=== PATIENT | male | born 1935 | race Caucasian/White ===

== ENCOUNTER 2018-01-28 07:45 | Emergency (ER) | payer MEDICARE ==
--- NOTE | 2018-01-28 08:53 | RAD ---
RIGHT HIP 2 VIEWS: Date: 01/28/18 HISTORY: Fall. Right hip injury. FINDINGS: Right hip prosthesis is in place. No perihardware lucency. No acute fracture or dislocation. Osseous structures are demineralized. IMPRESSION: 1. Right hip prosthesis. 2. Osteoporosis. POS: [facility]
--- NOTE | 2018-01-28 08:54 | RAD ---
AP PELVIS 1 VIEW: Date: 01/28/18 HISTORY: Fall. Pelvic injury. FINDINGS: Right hip prosthesis is in place. Osseous structures are demineralized. Sacral ala and pelvic rings a re intact. IMPRESSION: 1. Osteoporosis. Right hip prosthesis. 2. No acute osseous abnormalities are demonstrated. POS: [facility]
[2018-01-28 09:14] LABS: #Eosinphils 0.2 thou/uL (0.0-0.7); #Lymphocytes 0.8 thou/uL (1.20-3.40); #Monocytes 0.6 thou/uL (0.11-0.59); #Neutrophils 6.7 thou/uL (1.40-6.50); %Basophils 0.1 % (0.0-1.0); %Eosinophils 2.7 % (0.0-10.0); %Lymphocytes 10.1 % (21.0-51.0); %Monocytes 6.6 % (0.0-10.0); %Neutrophils 80.5 % (42.0-75.0); Hemoglobin 12.2 g/dL (14.0-18.0); Mean Corpuscular HGB CONC 32.1 g/dL (32.0-36.0); Mean Corpuscular Hemoglobin 25.5 pg (27.0-31.0); Mean Corpuscular Volume 79.2 fl (80.0-94.0); Mean Platelet Volume 5.5 fL (7.4-10.4); Platelet Count 242 thou/uL (130-400); RBC Distribution Width 15.1 % (11.5-14.5); Red Blood Cell (RBC) Count 4.79 mill/uL (4.70-6.10); White Blood Cell (WBC) Count 8.3 thou/uL (4.8-10.8)
[2018-01-28 09:36] LABS: ALT (SGPT) 13 U/L (8-55); AST (SGOT) 15 U/L (5-34); Albumin 3.9 g/dL (3.4-4.8); Alkaline Phosphatase 87 U/L (40-150); Anion Gap 12 mmol/L (10-20); BUN (Urea Nitrogen) 10 mg/dL (8.4-25.7); Bilirubin, Total 0.4 mg/dL (0.2-1.2); Calc. Creatinine Clearance 0 mL/min (70-130); Calcium 8.9 mg/dL (7.8-10.44); Carbon Dioxide 28 mmol/L (23-31); Chloride 102 mmol/L (98-107); Estimated GFR-MDRD Greater than 90; Globulin 2.5 g/dL (2.4-3.5); Glucose 83 mg/dL (83-110); Potassium 4.5 mmol/L (3.5-5.1); Protein, Total 6.4 g/dL (5.8-8.1); Sodium 137 mmol/L (136-145)
[2018-01-28 09:40] LABS: Bilirubin Negative (Negative); Blood, Urine Negative (Negative); Clarity CLEAR (Clear); Glucose, Urine (Dipstick) Negative (Negative); Leukocyte Negative (Negative); Nitrite Negative (Negative); Protein, Urine (Dipstick) Negative (Neg-Trace); Specific Gravity, Urine 1.006 (1.002-1.036); Urobilinogen 0.2 mg/dL (0.2-1.0)
[2018-01-28 09:40] LABS: CKMB 2.3 ng/mL (0-6.6); Troponin I Less than 0.010 ng/mL (< 0.028)
== END 2018-01-28 11:15 | disposition home or self-care (01) ==
LOC: ERS 07:45
DX: Y93.01 Activity, walking, marching and hiking; R53.81 Other malaise; M25.551 Pain in right hip; W19.XXXA Unspecified fall, initial encounter
CPT/HCPCS: 36415; 72170; 80053; 81003; 82553; 84484; 85025; 93005

== ENCOUNTER 2019-02-20 18:33 | Observation (INO) | payer MEDICARE, OTHER ==
--- NOTE | 2019-02-20 19:28 | RAD ---
Radiograph right hip 2 views: HISTORY: 83-year-old male status post traumatic injury due to fall FINDINGS: Femoral head and neck have been replaced with metallic prosthesis with stem that reaches the junction between the proximal and middle thirds of the femoral diaphysis. No signs of hardware loosening. No dislocation. Diffuse osteopenia decreases the sensitivity for the detection of adjacent pelvic fra cture. No grossly displaced pelvic fracture identified. No dislocation. IMPRESSION: 1. Status post right hip replacement arthroplasty. 2. No evidence of complications.
[2019-02-20] MEDS ORDERED: Acetaminophen 500 MG TAB ONE (20:02)
[2019-02-20] MEDS ORDERED: Morphine 4 MG/ML VIAL ONE (20:33)
[2019-02-21] MEDS ORDERED: Senokot S 8.6-50 MG TAB PO PRN (00:32)
[2019-02-21] MEDS ORDERED: Acetaminophen 650 MG Suppository PR PRN (00:32)
[2019-02-21] MEDS ORDERED: Ondansetron ODT 4 MG TAB PO PRN (00:32)
[2019-02-21] MEDS ORDERED: Acetaminophen 325 MG TAB PO PRN (00:32)
[2019-02-21 00:51] LABS: #Lymphocytes 1.2 thou/uL (1.20-3.40); #Monocytes 0.9 thou/uL (0.11-0.59); #Neutrophils 7.8 thou/uL (1.40-6.50); %Basophils 0.2 % (0.0-1.0); %Eosinophils 0.3 % (0.0-10.0); %Lymphocytes 11.7 % (21.0-51.0); %Monocytes 8.9 % (0.0-10.0); %Neutrophils 78.8 % (42.0-75.0); Hemoglobin 12.8 g/dL (14.0-18.0); Mean Corpuscular HGB CONC 31.8 g/dL (32.0-36.0); Mean Corpuscular Hemoglobin 26.4 pg (27.0-31.0); Mean Platelet Volume 6.2 fL (7.4-10.4); Platelet Count 167 thou/uL (130-400); RBC Distribution Width 15.1 % (11.5-14.5); Red Blood Cell (RBC) Count 4.85 mill/uL (4.70-6.10)
[2019-02-21 01:08] VITALS: BMI 23.3
[2019-02-21 01:16] LABS: ALT (SGPT) 11 U/L (8-55); AST (SGOT) 12 U/L (5-34); Albumin 3.8 g/dL (3.4-4.8); Alkaline Phosphatase 62 U/L (40-150); Anion Gap 10 mmol/L (10-20); BUN (Urea Nitrogen) 13 mg/dL (8.4-25.7); Bilirubin, Total 0.9 mg/dL (0.2-1.2); Calc. Creatinine Clearance 73 mL/min (70-130); Carbon Dioxide 26 mmol/L (23-31); Chloride 106 mmol/L (98-107); Estimated GFR-MDRD 83; Globulin 2.6 g/dL (2.4-3.5); Glucose 131 mg/dL (83-110); Potassium 4.1 mmol/L (3.5-5.1); Protein, Total 6.4 g/dL (5.8-8.1); Sodium 138 mmol/L (136-145)
--- NOTE | 2019-02-21 01:39 | HP ---
This is WES Cortes dictating a report for Tomas Levin MD. CHIEF COMPLAINT: Right hip pain. HISTORY OF PRESENT ILLNESS: Mr. Nathan is a pleasant 83-year-old man who presents to the ER after a mechanical fall with subsequent injury to the right hip. The patient states he was in the kitchen reaching for his coffee while attempting to walk with his walker when he lost his footing and fell onto his right hip. He has a history of a right hip replacement. Reports having difficulty with weightbearing since then. He underwent an x-ray which showed previously placed metallic prosthesis with no signs of hardware loosening. No dislocation. Due to diffuse osteopenia, there was decreased sensitivity for detection of adjacent pelvic fracture. No grossly displaced pelvic fracture identified. The patient was given analgesia, but still unable to weight bear, therefore admitted for pain control. He states he has been in his usual state of health in recent days, however, has noted lower leg swelling approximately 3 to 4 days ago. States he does not have a history of congestive heart failure and does not usually experience edema in the lower legs. The patient reports having decreased fluid intake in recent days, but denies experiencing any lightheadedness or dizziness. Denies any chest pain or shortness of breath prior to the fall or in recent days. He states he has been in his usual state of health. REVIEW OF SYSTEMS: The patient denies having any recent fevers, chills, or sweats. No headaches or dizziness. No chest pain, palpitations, or shortness of breath. No abdominal pain or cramping. He does report straining with bowel movements, but denies any hard stools. No bright red blood per rectum or melena. Denies having any urinary symptoms, but has noted darkening of his urine. No hematuria. All other review of systems are negative. PAST MEDICAL HISTORY: 1. Previous hip fracture in November of 2017. 2. Hypertension. 3. History of DVT. PAST SURGICAL HISTORY: Right hip replacement. SOCIAL HISTORY: The patient denies any tobacco use or heavy alcohol use. Denies any illicit drug use. ALLERGIES: NO KNOWN DRUG ALLERGIES. CURRENT MEDICATIONS: PHYSICAL EXAMINATION: GENERAL: The patient appears well developed, well nourished, is in no acute distress. VITAL SIGNS: Temperature 98.7, pulse 75, respirations 12, blood pressure 138/97, O2 saturation 94% on room air. HEENT: Normocephalic and atraumatic. Pupils are equal, round, and reactive to light. Sclerae are without icterus. Oropharynx is notable for dry mucous membranes. NECK: Supple. LUNGS: Clear to auscultation. CARDIAC: Regular rate and rhythm. ABDOMEN: Soft, nontender, nondistended. No guarding or rigidity. No renal angle tenderness. EXTREMITIES: Notable for +3 pitting edema in the bilateral feet extending just above the ankles. No cellulitic appearance or weeping. Pedal pulses equal bilaterally. The patient with right hip tenderness. No external rotation or shortening. Limited range of motion due to pain in the right hip. Unable to weightbear. NEUROLOGIC: Alert and oriented x3. SKIN: Dry. No rash or jaundice. Scaly appearance to the lower legs. LABORATORY DATA: None obtained in the ED. IMAGING DATA: As mentioned above in HPI. IMPRESSION AND PLAN: Mr. Nathan is a very pleasant 83-year-old man who presents following a mechanical fall with subsequent injury to the right hip causing difficulty with weightbearing. He is being admitted for management of the following. 1. Right hip pain, unable to weightbear. The patient had an x-ray done with diffuse osteopenia, therefore, decreased sensitivity to detect adjacent pelvic fracture. However, no grossly displaced pelvic fracture identified or dislocation. We will obtain CT pelvis given the amount of pain and limited range of motion with difficulty weightbearing. 2. Pedal edema. The patient states this is new and he does not suffer from congestive heart failure. We will obtain laboratory studies including BNP. 3. Hypertension. We will resume home medications and monitor blood pressure. 4. Gastrointestinal prophylaxis. 5. Deep venous thrombosis prophylaxis. 6. Full code status. The patient's case was discussed with Dr. Levin, who agrees upon care as described above. Job ID: [id number]
[2019-02-21] MEDS: Sodium Chloride 0.9% 1,000 ML IV SCH ×3 (02:00→20:50)
[2019-02-21 05:45] LABS: #Lymphocytes 1.2 thou/uL (1.20-3.40); #Monocytes 0.7 thou/uL (0.11-0.59); #Neutrophils 6.1 thou/uL (1.40-6.50); %Basophils 0.2 % (0.0-1.0); %Eosinophils 0.6 % (0.0-10.0); %Lymphocytes 15.1 % (21.0-51.0); %Monocytes 8.2 % (0.0-10.0); Hemoglobin 12.5 g/dL (14.0-18.0); Mean Corpuscular HGB CONC 32.7 g/dL (32.0-36.0); Mean Corpuscular Hemoglobin 26.5 pg (27.0-31.0); Mean Corpuscular Volume 80.9 fL (78.0-98.0); Mean Platelet Volume 6.4 fL (7.4-10.4); Platelet Count 164 thou/uL (130-400); Red Blood Cell (RBC) Count 4.74 mill/uL (4.70-6.10)
[2019-02-21 06:12] LABS: Anion Gap 11 mmol/L (10-20); BUN (Urea Nitrogen) 11 mg/dL (8.4-25.7); Calc. Creatinine Clearance 75 mL/min (70-130); Calcium 8.7 mg/dL (7.8-10.44); Carbon Dioxide 26 mmol/L (23-31); Chloride 105 mmol/L (98-107); Estimated GFR-MDRD 87; Glucose 123 mg/dL (83-110); Potassium 3.8 mmol/L (3.5-5.1); Sodium 138 mmol/L (136-145)
--- NOTE | 2019-02-21 07:50 | CT ---
PRELIMINARY REPORT/[facility]/EMERGENCY AFTER HOURS PROCEDURE: EXAM: CT Pelvis Without Contrast, Skeletal EXAM DATE/TIME: 02/21/2019 12:51 AM CLINICAL HISTORY: 83 years old, male; Hip pain; Right hip; Prior surgery; Surgery date: 6+ months; Surgery type: Hip replacement TECHNIQUE: Imaging protocol: Axial computed tomography images of the pelvis without intravenous contrast. Exam focused on the skeletal structures. COMPARISON: No relevant prior studies available. FINDINGS: Bones/joints: Acute nondisplaced fracture of the right anterior acetabular roof. Possible hairline fractures through the left inferior and superior pubic rami near the pubic symphysis. The bones are demineralized. Cortical irregularity at the anterior left femoral neck (series 2, image 45), is likel y a vascular channel. Surgical changes of right hip arthroplasty. No malalignment. Soft tissues: There is hemorrhage in the soft tissues around the right acetabular fracture and extending intra-pelvic along the right psoas muscle and around the bladder. IMPRESSION: 1. Acute nondisplaced fracture through the right anterior acetabular roof. 2. Hemorrhage from fracture site extends into the pelvis around the bladder and along the right psoas muscle. 3. Suspected nondisplaced fractures of the left inferior and superior pubic rami near the pubic symphysis. 4. Right hip arthroplasty without malalignment. Thank you for allowing us to participate in the care of your patient. Dictated and Authenticated by: Rahda Duong MD 02/21/2019 1:59 AM Central Time ([place] & [place]) FINAL REPORT EMERGENCY AFTER HOURS CT PELVIS WITHOUT CONTRAST: FINDINGS/IMPRESSION: I agree with the preliminary report given by Dr. Duong of [facility]. Transcribed Date/Time: 02/21/2019 8:04 AM
--- NOTE | 2019-02-21 10:11 | CON ---
DATE OF CONSULTATION: 02/21/2019 This is Do Granados PA-C dictating a report for Darryl Shoemaker MD. [facility] CONSULTING PHYSICIAN: Darryl Shoemaker MD HISTORY OF PRESENT ILLNESS: This is an 83-year-old male who is an independent ambulator, who presented to the ER after a mechanical fall with injury to the right hip. The patient stated that he was in his kitchen reaching for his coffee whenever he lost his footing and fell onto his right hip. He does have a history of a right hemiarthroplasty from previous femoral neck fracture. This was fixed in [place]. He reports generalized weakness overall since that surgery. He states much of his time he just sits at home and watches TV. Currently at bedside, the patient denies any numbness or tingling. He reports pain to the right hip, which is worse with movement and relieved with rest. Denies any pain to any other joints or extremities at this time. We have been consulted for this right hip pain. PAST MEDICAL HISTORY: Significant for: 1. Previous hip fracture in November of 2017 for which he underwent a right hip hemiarthroplasty. 2. Hypertension. 3. History of DVT. PAST SURGICAL HISTORY: Significant for right hip hemiarthroplasty. SOCIAL HISTORY: The patient denies any tobacco or alcohol use. He denies any illicit drug use. He is an independent ambulator. States he lives in an apartment here in [facility]. ALLERGIES: NO KNOWN DRUG ALLERGIES. FAMILY HISTORY: Reviewed and noncontributory. REVIEW OF SYSTEMS: A 10-point review of systems conducted and otherwise negative except what is stated above. PHYSICAL EXAMINATION: VITAL SIGNS: Temperature of 98.1 Fahrenheit, pulse 87, respiratory rate 20, O2 saturation 93% on room air, and blood pressure of 170/89. GENERAL: The patient is awake and alert. He is slightly hard of hearing. He is pleasant and cooperative with exam findings today. No family present in the exam room at this time. HEENT: Head is normocephalic, atraumatic. NECK: Supple. Trachea midline. Breathing is nonlabored. EXTREMITIES: The right lower extremity was evaluated. There is no evidence of ecchymosis. No traumatic wounds to the right lower extremity. Of note, there is evidence of dusky changes to the medial ankle, which appear to be consistent with cardiac disease. The patient is able to move all toes. Distal neurovascular status intact. The patient does have pain with log roll. He is more comfortable in a position of slight flexion at the hip with slight flexion at the knee. He was propped up in this position for comfort. Positive tenderness to palpation along the trochanteric region of the right hip. Remainder of the extremities were evaluated and no other obvious injuries are noted. DIAGNOSTIC STUDIES: Radiographic findings were reviewed by myself as well as Dr. Shoemaker today including a CT of the right hip demonstrates a nondisplaced roof of the acetabulum fracture. There is a right hip hemiarthroplasty in place. IMPRESSION: Nondisplaced right acetabulum fracture. PLAN: At this point, the patient's fracture is nonoperative. We will limit his weightbearing. He will be toe-touch on the right side. He will work with physical therapy. Given his history of DVT and his new immobilization, it would be smart for the patient to be on some sort of anticoagulant, even though he is not undergoing surgery with us. He will be screened for rehab facility. We would like to see him in our office in approximately 3-4 weeks for followup evaluation and new x-rays. Plan of care was discussed with the patient today at bedside. He verbalizes understanding and is amenable to it. Please re-consult the Orthopedic service for any further questions. Job ID: [id number]
[2019-02-21] MEDS ORDERED: Metoprolol Tartrate 25 MG TAB PO SCH (10:15)
[2019-02-21] MEDS: traMADol HCl 50 MG TAB PO PRN ×2 (10:24→20:50)
--- NOTE | 2019-02-21 12:11 | PDOC.EVN ---
Event Note - Event Note Event Note: Patient admitted over night, he was seen by myself. He was lying comfortably in bed. He reports pain controlled at the moment, ortho determined nonsurgical need at this time. He denies chest pain, palpitations, shortness of breath or abdominal pain. On exam: A&Ox3 no acute distress noted. RRR +S1/S2 with clear lung sounds bilaterally. Abdomen soft and nontender. He did not express any complaints of pain on exam with palpation of right or left hip, but did report pain directed to right hip with movement of right leg. Plan to continue PT/OT, rehab screen placed. Patient will continue current pain regimen and toe touch weight bearing status as tolerated. He will likely benefit from short stay in an inpatient rehabilitation facility.
[2019-02-22 08:06] VITALS: BP 150/83; TEMP 98.4
[2019-02-22] MEDS: traMADol HCl 50 MG TAB PO PRN (08:40)
[2019-02-22] MEDS ORDERED: Metoprolol Tartrate 25 MG TAB PO SCH (09:00)
== END 2019-02-22 10:37 ==
LOC: ERS 18:33 → T4-B 23:07
PROVIDERS: ADMIT Internal Medicine; ATTEND Internal Medicine
DX: M25.551 Pain in right hip (principal); M85.869 Other specified disorders of bone density and structure, unspecified lower leg; W01.0XXA Fall on same level from slipping, tripping and stumbling without subsequent striking against object, initial encounter; Z96.641 Presence of right artificial hip joint
CPT/HCPCS: 72192; 73502; 80048; 80053; 83880; 85025 ×2; 96372; 97139 ×2; 97530; 99285; G0378; 36415; J2270

== ENCOUNTER 2022-05-06 15:33 | Inpatient (IN) | payer MEDICARE, OTHER ==
[2022-05-06] MEDS ORDERED: Ondansetron ODT 4 MG TAB ONE (16:54)
[2022-05-06 17:01] LABS: #Eosinphils 0.1 thou/uL (0.0-0.7); #Lymphocytes 0.5 thou/uL (1.20-3.40); #Monocytes 0.6 thou/uL (0.11-0.59); #Neutrophils 5.8 thou/uL (1.40-6.50); %Lymphocytes 6.5 % (21.0-51.0); %Neutrophils 84.5 % (42.0-75.0); Hemoglobin 14.7 g/dL (14.0-18.0); Mean Corpuscular HGB CONC 33.2 g/dL (32.0-36.0); Mean Corpuscular Volume 93.4 fL (78.0-98.0); Mean Platelet Volume 6.3 fL (7.4-10.4); Platelet Count 153 thou/uL (130-400); RBC Distribution Width 13.5 % (11.5-14.5); Red Blood Cell (RBC) Count 4.75 mill/uL (4.70-6.10); White Blood Cell (WBC) Count 6.8 thou/uL (4.8-10.8)
[2022-05-06 17:19] LABS: ALT (SGPT) 27 U/L (8-55); AST (SGOT) 20 U/L (5-34); Alkaline Phosphatase 60 U/L (40-110); Anion Gap 14 mmol/L (10-20); BUN (Urea Nitrogen) 23 mg/dL (8.4-25.7); Bilirubin, Total 1.3 mg/dL (0.2-1.2); Calc. Creatinine Clearance 0 mL/min (70-130); Calcium 8.7 mg/dL (7.8-10.44); Carbon Dioxide 26 mmol/L (23-31); Chloride 104 mmol/L (98-107); Estimated GFR 86; Globulin 2.8 g/dL (2.4-3.5); Glucose 129 mg/dL (83-110); Potassium 3.9 mmol/L (3.5-5.1); Protein, Total 6.8 g/dL (5.8-8.1); Sodium 140 mmol/L (136-145)
[2022-05-06] MEDS ORDERED: ceFAZolin 2 GM/Dextrose 50 ML 2 GM in Premix Bag 1 BAG IVPB SCH (17:30)
[2022-05-06] MEDS ORDERED: Promethazine HCl 25 MG/ML VIAL IM PRN (18:32)
[2022-05-06] MEDS ORDERED: hydrALAZINE 20 MG/ML VIAL SLOW IVP PRN (18:32)
[2022-05-06] MEDS ORDERED: Morphine 2 MG/ML VIAL SLOW IVP PRN ×2 (18:32→22:39)
[2022-05-06] MEDS ORDERED: Morphine 4 MG/ML VIAL SLOW IVP PRN (18:32)
[2022-05-06] MEDS ORDERED: Dextrose 5% in Water 1,000 ML IV PRN (18:32)
[2022-05-06] MEDS ORDERED: Dextrose 50% Abboject 50 ML SYRINGE SLOW IVP PRN (18:32)
[2022-05-06] MEDS ORDERED: Ondansetron PF 4 MG/2 ML Vial IVP PRN (18:32)
[2022-05-06] MEDS ORDERED: Ondansetron ODT 4 MG TAB PO PRN (18:32)
[2022-05-06] MEDS ORDERED: Ibuprofen 800 MG TAB PO PRN (18:34)
[2022-05-06] MEDS ORDERED: Cyclobenzaprine 10 MG TAB PO PRN (18:34)
[2022-05-06] MEDS ORDERED: traMADol HCl 50 MG TAB PO PRN (18:34)
[2022-05-06] MEDS ORDERED: Acetaminophen 500 MG TAB PO SCH (19:15)
[2022-05-06 22:46] VITALS: BMI 19.9
[2022-05-06] MEDS: Acetaminophen 500 MG TAB PO SCH (22:58)
[2022-05-06] MEDS: Famotidine 20 MG TAB PO SCH (22:58)
[2022-05-06] MEDS: Senokot S 8.6-50 MG TAB PO SCH (22:59)
[2022-05-06] MEDS ORDERED: Sodium Chloride 0.9% 1,000 ML IV SCH (23:00)
[2022-05-07 02:45] LABS: SARS-CoV-2 NAA Rapid Test DETECTED (NotDetected)
[2022-05-07] MEDS: Acetaminophen 500 MG TAB PO SCH ×3 (05:08→17:22)
[2022-05-07 05:48] LABS: #Eosinphils 0.2 thou/uL (0.0-0.7); #Lymphocytes 1.2 thou/uL (1.20-3.40); #Monocytes 0.5 thou/uL (0.11-0.59); #Neutrophils 4.5 thou/uL (1.40-6.50); %Basophils 0.3 % (0.0-1.0); %Eosinophils 3.7 % (0.0-10.0); %Lymphocytes 18.6 % (21.0-51.0); %Monocytes 8.4 % (0.0-10.0); %Neutrophils 69.1 % (42.0-75.0); Hemoglobin 15.3 g/dL (14.0-18.0); Mean Corpuscular HGB CONC 31.7 g/dL (32.0-36.0); Mean Corpuscular Hemoglobin 30.4 pg (27.0-31.0); Mean Corpuscular Volume 95.8 fL (78.0-98.0); Mean Platelet Volume 7.2 fL (7.4-10.4); Platelet Count 139 thou/uL (130-400); RBC Distribution Width 13.8 % (11.5-14.5); Red Blood Cell (RBC) Count 5.03 mill/uL (4.70-6.10); White Blood Cell (WBC) Count 6.5 thou/uL (4.8-10.8)
[2022-05-07 06:07] LABS: Anion Gap 19 mmol/L (10-20); BUN (Urea Nitrogen) 18 mg/dL (8.4-25.7); Calc. Creatinine Clearance 71 mL/min (70-130); Calcium 8.9 mg/dL (7.8-10.44); Carbon Dioxide 20 mmol/L (23-31); Chloride 105 mmol/L (98-107); Estimated GFR 90; Glucose 95 mg/dL (83-110); Phosphorus 2.6 mg/dL (2.3-4.7); Potassium 3.7 mmol/L (3.5-5.1); Sodium 140 mmol/L (136-145)
[2022-05-07] MEDS: Polyethylene Glycol 3350 17 GM Packet PO SCH (08:22)
[2022-05-07] MEDS: Famotidine 20 MG TAB PO SCH ×2 (08:22→20:38)
[2022-05-07] MEDS: Senokot S 8.6-50 MG TAB PO SCH ×2 (08:22→20:38)
[2022-05-07] MEDS ORDERED: Sodium Chloride 0.9% 1,000 ML IV SCH (11:15)
[2022-05-07] MEDS ORDERED: Tranexamic Acid 1,000 MG in Sodium Chloride 0.9% 250 ML 250 ML IVPB SCH (11:30)
[2022-05-07] MEDS ORDERED: fentaNYL Citrate/PF 100 MCG/2 ML SYRINGE ONE (11:32)
[2022-05-07] MEDS ORDERED: Phenylephrine 10 MG/ML VIAL ONE ×2 (11:33→12:18)
[2022-05-07] MEDS ORDERED: Rocuronium Bromide 10 MG/ML (10ML VIAL) ONE (12:18)
[2022-05-07] MEDS ORDERED: Lidocaine 1% PF 5 ML VIAL ONE (12:18)
[2022-05-07] MEDS ORDERED: PROPOFOL 200 MG/20 ML VIAL ONE (12:18)
[2022-05-07] MEDS ORDERED: Esmolol 100 MG/10 ML VIAL ONE (12:18)
[2022-05-07] MEDS ORDERED: SUGAMMADEX SODIUM 200 MG/2 ML VIAL ONE (14:13)
[2022-05-07] MEDS ORDERED: Fentanyl 100 MCG/2 ML VIAL ONE (14:23)
[2022-05-07] MEDS ORDERED: Ondansetron HCl/PF 4 MG/2 ML Vial IVP PRN (14:50)
[2022-05-07] MEDS ORDERED: Promethazine HCl 25 MG/ML VIAL IVPB PRN (14:50)
[2022-05-07] MEDS ORDERED: Promethazine HCl 25 MG/ML VIAL IM PRN (14:50)
[2022-05-07] MEDS: CEFAZOLIN 2 GM in Sodium Chloride 0.9% 100 ML IVPB SCH (22:48)
[2022-05-08] MEDS: Acetaminophen 500 MG TAB PO SCH ×4 (01:11→17:48)
[2022-05-08 06:03] LABS: #Eosinphils 0.1 thou/uL (0.0-0.7); #Monocytes 0.5 thou/uL (0.11-0.59); #Neutrophils 4.9 thou/uL (1.40-6.50); %Basophils 0.2 % (0.0-1.0); %Eosinophils 1.3 % (0.0-10.0); %Lymphocytes 15.6 % (21.0-51.0); %Monocytes 7.3 % (0.0-10.0); %Neutrophils 75.6 % (42.0-75.0); Hemoglobin 13.1 g/dL (14.0-18.0); Mean Corpuscular Hemoglobin 30.4 pg (27.0-31.0); Mean Corpuscular Volume 94.9 fL (78.0-98.0); Mean Platelet Volume 6.3 fL (7.4-10.4); Platelet Count 129 thou/uL (130-400); RBC Distribution Width 13.7 % (11.5-14.5); Red Blood Cell (RBC) Count 4.32 mill/uL (4.70-6.10); White Blood Cell (WBC) Count 6.5 thou/uL (4.8-10.8)
[2022-05-08] MEDS: CEFAZOLIN 2 GM in Sodium Chloride 0.9% 100 ML IVPB SCH (06:12)
[2022-05-08 06:15] LABS: INR-International Normal Ratio 1.2; Prothrombin Time 14.9 sec (12.0-14.7)
[2022-05-08 06:16] LABS: PTT 51.3 sec (22.9-36.1)
[2022-05-08 06:25] LABS: Anion Gap 15 mmol/L (10-20); BUN (Urea Nitrogen) 20 mg/dL (8.4-25.7); Calc. Creatinine Clearance 64 mL/min (70-130); Calcium 8.3 mg/dL (7.8-10.44); Carbon Dioxide 24 mmol/L (23-31); Chloride 105 mmol/L (98-107); Estimated GFR 87; Glucose 102 mg/dL (83-110); Magnesium 1.8 mg/dL (1.6-2.6); Phosphorus 2.9 mg/dL (2.3-4.7); Potassium 4.2 mmol/L (3.5-5.1); Sodium 140 mmol/L (136-145)
[2022-05-08] MEDS: Senokot S 8.6-50 MG TAB PO SCH ×2 (08:50→20:39)
[2022-05-08] MEDS: Polyethylene Glycol 3350 17 GM Packet PO SCH (08:50)
[2022-05-08] MEDS: Famotidine 20 MG TAB PO SCH ×2 (08:50→20:39)
[2022-05-08] MEDS ORDERED: Magnesium 2 GM/50 ML(in water) 2 GM in Premix Bag 1 BAG IVPB SCH (09:00)
[2022-05-09] MEDS: Acetaminophen 500 MG TAB PO SCH ×4 (00:17→17:56)
[2022-05-09 05:57] LABS: Hemoglobin 12.6 g/dL (14.0-18.0); Mean Corpuscular HGB CONC 32.2 g/dL (32.0-36.0); Mean Corpuscular Hemoglobin 30.4 pg (27.0-31.0); Mean Corpuscular Volume 94.2 fL (78.0-98.0); Mean Platelet Volume 6.7 fL (7.4-10.4); Platelet Count 139 thou/uL (130-400); RBC Distribution Width 13.5 % (11.5-14.5); Red Blood Cell (RBC) Count 4.15 mill/uL (4.70-6.10); White Blood Cell (WBC) Count 6.7 thou/uL (4.8-10.8)
[2022-05-09] MEDS: Polyethylene Glycol 3350 17 GM Packet PO SCH (07:55)
[2022-05-09] MEDS: Famotidine 20 MG TAB PO SCH ×2 (07:55→21:43)
[2022-05-09] MEDS: Aspirin 81 mg Enteric Coated Tablet PO SCH ×2 (07:55→21:43)
[2022-05-09] MEDS: Senokot S 8.6-50 MG TAB PO SCH ×2 (07:55→21:46)
[2022-05-09] MEDS ORDERED: Polyvinyl Alcohol 1.4%/Povidone 0.6% Opth Drops EA EYE PRN (12:36)
[2022-05-10] MEDS: Acetaminophen 500 MG TAB PO SCH ×4 (00:29→17:17)
[2022-05-10] MEDS: Aspirin 81 mg Enteric Coated Tablet PO SCH ×2 (08:32→21:34)
[2022-05-10] MEDS: Famotidine 20 MG TAB PO SCH ×2 (08:32→21:34)
[2022-05-10] MEDS: Senokot S 8.6-50 MG TAB PO SCH ×2 (08:33→21:35)
[2022-05-10] MEDS: Polyethylene Glycol 3350 17 GM Packet PO SCH (08:33)
[2022-05-11] MEDS: Acetaminophen 500 MG TAB PO SCH ×4 (05:33→18:35)
[2022-05-11] MEDS: Aspirin 81 mg Enteric Coated Tablet PO SCH ×2 (09:47→22:35)
[2022-05-11] MEDS: Famotidine 20 MG TAB PO SCH ×2 (09:47→22:35)
[2022-05-11] MEDS: Senokot S 8.6-50 MG TAB PO SCH ×2 (09:47→22:36)
[2022-05-11] MEDS: Polyethylene Glycol 3350 17 GM Packet PO SCH (09:47)
[2022-05-11] MEDS: Ibuprofen 200 MG TAB PO SCH ×2 (13:49→22:35)
[2022-05-11] MEDS: traMADol HCl 50 MG TAB PO SCH ×2 (13:49→18:35)
[2022-05-11] MEDS ORDERED: Sodium Chloride 0.9% 500 ML IV SCH (21:45)
[2022-05-12] MEDS: traMADol HCl 50 MG TAB PO SCH ×4 (00:09→18:22)
[2022-05-12] MEDS: Acetaminophen 500 MG TAB PO SCH ×4 (00:10→18:22)
[2022-05-12] MEDS: Ibuprofen 200 MG TAB PO SCH ×3 (04:16→22:19)
[2022-05-12] MEDS: Senokot S 8.6-50 MG TAB PO SCH ×2 (08:26→22:19)
[2022-05-12] MEDS: Aspirin 81 mg Enteric Coated Tablet PO SCH ×2 (08:26→22:20)
[2022-05-12] MEDS: Polyethylene Glycol 3350 17 GM Packet PO SCH (08:26)
[2022-05-12] MEDS: Famotidine 20 MG TAB PO SCH ×2 (08:26→22:20)
[2022-05-12] MEDS ORDERED: Sodium Chloride 0.9% 1,000 ML IV SCH (13:45)
[2022-05-13] MEDS: traMADol HCl 50 MG TAB PO SCH ×4 (00:41→23:55)
[2022-05-13] MEDS: Acetaminophen 500 MG TAB PO SCH ×4 (00:41→23:53)
[2022-05-13] MEDS: Ibuprofen 200 MG TAB PO SCH ×3 (05:06→22:38)
[2022-05-13] MEDS: Famotidine 20 MG TAB PO SCH ×2 (09:48→21:53)
[2022-05-13] MEDS: Polyethylene Glycol 3350 17 GM Packet PO SCH ×2 (09:48→10:49)
[2022-05-13] MEDS: Aspirin 81 mg Enteric Coated Tablet PO SCH ×2 (09:48→21:53)
[2022-05-13] MEDS: Senokot S 8.6-50 MG TAB PO SCH ×2 (09:49→22:06)
[2022-05-14] MEDS: Acetaminophen 500 MG TAB PO SCH ×4 (02:17→18:09)
[2022-05-14] MEDS: traMADol HCl 50 MG TAB PO SCH ×4 (02:18→18:10)
[2022-05-14] MEDS: Ibuprofen 200 MG TAB PO SCH ×3 (05:55→18:08)
[2022-05-14 06:32] LABS: Anion Gap 13 mmol/L (10-20); BUN (Urea Nitrogen) 10 mg/dL (8.4-25.7); Calc. Creatinine Clearance 77 mL/min (70-130); Calcium 8.7 mg/dL (7.8-10.44); Carbon Dioxide 28 mmol/L (23-31); Chloride 102 mmol/L (98-107); Estimated GFR 92; Glucose 94 mg/dL (83-110); Potassium 4.3 mmol/L (3.5-5.1); Sodium 139 mmol/L (136-145)
[2022-05-14] MEDS: Enoxaparin Sodium 40 MG/0.4 ML SYRINGE SC SCH (09:22)
[2022-05-14] MEDS: Polyethylene Glycol 3350 17 GM Packet PO SCH ×2 (09:22→09:25)
[2022-05-14] MEDS: Aspirin 81 mg Enteric Coated Tablet PO SCH ×2 (09:22→20:58)
[2022-05-14] MEDS: Famotidine 20 MG TAB PO SCH ×2 (09:22→20:57)
[2022-05-14] MEDS: Senokot S 8.6-50 MG TAB PO SCH ×2 (09:22→20:58)
[2022-05-15] MEDS: Acetaminophen 500 MG TAB PO SCH ×5 (00:08→23:43)
[2022-05-15] MEDS: traMADol HCl 50 MG TAB PO SCH ×5 (00:10→23:43)
[2022-05-15] MEDS: Ibuprofen 200 MG TAB PO SCH ×3 (04:32→19:58)
[2022-05-15] MEDS: Enoxaparin Sodium 40 MG/0.4 ML SYRINGE SC SCH (08:47)
[2022-05-15] MEDS: Aspirin 81 mg Enteric Coated Tablet PO SCH ×2 (08:47→19:58)
[2022-05-15] MEDS: Polyethylene Glycol 3350 17 GM Packet PO SCH (08:47)
[2022-05-15] MEDS: Senokot S 8.6-50 MG TAB PO SCH ×2 (08:47→19:59)
[2022-05-15] MEDS: Famotidine 20 MG TAB PO SCH ×2 (08:47→19:58)
[2022-05-16] MEDS: Ibuprofen 200 MG TAB PO SCH ×3 (05:32→20:47)
[2022-05-16] MEDS: traMADol HCl 50 MG TAB PO SCH ×4 (05:33→23:40)
[2022-05-16] MEDS: Acetaminophen 500 MG TAB PO SCH ×4 (05:33→23:40)
[2022-05-16] MEDS: Famotidine 20 MG TAB PO SCH ×2 (08:38→20:47)
[2022-05-16] MEDS: Enoxaparin Sodium 40 MG/0.4 ML SYRINGE SC SCH (08:38)
[2022-05-16] MEDS: Aspirin 81 mg Enteric Coated Tablet PO SCH ×2 (08:38→20:47)
[2022-05-16] MEDS: Senokot S 8.6-50 MG TAB PO SCH ×2 (08:40→20:47)
[2022-05-16] MEDS: Polyethylene Glycol 3350 17 GM Packet PO SCH (08:40)
[2022-05-17] MEDS: traMADol HCl 50 MG TAB PO SCH ×3 (05:00→17:19)
[2022-05-17] MEDS: Ibuprofen 200 MG TAB PO SCH ×3 (05:00→20:31)
[2022-05-17] MEDS: Acetaminophen 500 MG TAB PO SCH ×3 (05:00→17:19)
[2022-05-17] MEDS: Polyethylene Glycol 3350 17 GM Packet PO SCH (08:29)
[2022-05-17] MEDS: Senokot S 8.6-50 MG TAB PO SCH ×2 (08:29→20:31)
[2022-05-17] MEDS: Aspirin 81 mg Enteric Coated Tablet PO SCH ×2 (08:29→20:31)
[2022-05-17] MEDS: Famotidine 20 MG TAB PO SCH ×2 (08:29→20:31)
[2022-05-18] MEDS: traMADol HCl 50 MG TAB PO SCH ×5 (00:13→23:59)
[2022-05-18] MEDS: Acetaminophen 500 MG TAB PO SCH ×5 (00:13→23:59)
[2022-05-18] MEDS: Ibuprofen 200 MG TAB PO SCH ×3 (05:45→20:24)
[2022-05-18] MEDS: Famotidine 20 MG TAB PO SCH ×2 (09:02→20:23)
[2022-05-18] MEDS: Aspirin 81 mg Enteric Coated Tablet PO SCH ×2 (09:02→20:24)
[2022-05-18] MEDS: Polyethylene Glycol 3350 17 GM Packet PO SCH (09:02)
[2022-05-18] MEDS: Senokot S 8.6-50 MG TAB PO SCH ×2 (09:03→20:24)
[2022-05-19] MEDS: Ibuprofen 200 MG TAB PO SCH (05:31)
[2022-05-19] MEDS: traMADol HCl 50 MG TAB PO SCH (05:32)
[2022-05-19] MEDS: Acetaminophen 500 MG TAB PO SCH (05:32)
[2022-05-19 08:20] VITALS: BP 134/85; TEMP 98.4
[2022-05-19] MEDS: Aspirin 81 mg Enteric Coated Tablet PO SCH (08:36)
[2022-05-19] MEDS: Famotidine 20 MG TAB PO SCH (08:36)
[2022-05-19] MEDS: Senokot S 8.6-50 MG TAB PO SCH (08:37)
[2022-05-19] MEDS: Polyethylene Glycol 3350 17 GM Packet PO SCH (08:37)
== END 2022-05-19 10:55 | DRG 521 ==
LOC: ERS 15:33 → SURG B 18:14
PROVIDERS: ADMIT Physician Assistant; ATTEND Surgery
PROC: 0SRS0J9 Replacement of Left Hip Joint, Femoral Surface with Synthetic Substitute, Cemented, Open Approach (ICD-10-PCS; principal; 2022-05-07)
DX: S72.032A Displaced midcervical fracture of left femur, initial encounter for closed fracture (principal); U07.1 COVID-19; W05.0XXA Fall from non-moving wheelchair, initial encounter; I10 Essential (primary) hypertension; Z96.641 Presence of right artificial hip joint; Z87.891 Personal history of nicotine dependence; Z79.899 Other long term (current) drug therapy; Z86.718 Personal history of other venous thrombosis and embolism; Z98.52 Vasectomy status
CPT/HCPCS: 36415; 70450; 71045; 72170; 80048; 80053; 83735; 84100; 84484; 85025; 85027; 85610; 85730; 93005; C1713; G0390; J0690; J1650; J2370; J2704; J3010; J3475; J7030; J7050; Q0162; U0002; U0003; U0005

== ENCOUNTER 2022-06-16 18:06 | Inpatient (IN) | payer MEDICARE, OTHER ==
[2022-06-16] MEDS ORDERED: Adenosine 6 MG/2 ML VIAL ONE (18:35)
[2022-06-16] MEDS ORDERED: Diltiazem 125 MG/25 ML ONE (18:39)
[2022-06-16 18:54] LABS: #Lymphocytes 0.3 thou/uL (1.20-3.40); #Monocytes 0.3 thou/uL (0.11-0.59); #Neutrophils 11.7 thou/uL (1.40-6.50); %Eosinophils 0.3 % (0.0-10.0); %Lymphocytes 2.6 % (21.0-51.0); %Monocytes 2.7 % (0.0-10.0); %Neutrophils 94.4 % (42.0-75.0); Hemoglobin 9.9 g/dL (14.0-18.0); Mean Corpuscular HGB CONC 33.6 g/dL (32.0-36.0); Mean Corpuscular Hemoglobin 30.3 pg (27.0-31.0); Mean Corpuscular Volume 90.1 fL (78.0-98.0); Mean Platelet Volume 5.7 fL (7.4-10.4); Platelet Count 280 thou/uL (130-400); RBC Distribution Width 14.1 % (11.5-14.5); Red Blood Cell (RBC) Count 3.27 mill/uL (4.70-6.10); White Blood Cell (WBC) Count 12.4 thou/uL (4.8-10.8)
[2022-06-16 19:20] LABS: ALT (SGPT) 15 U/L (8-55); AST (SGOT) 18 U/L (5-34); Albumin 3.1 g/dL (3.4-4.8); Alkaline Phosphatase 60 U/L (40-110); Anion Gap 17 mmol/L (10-20); BUN (Urea Nitrogen) 60 mg/dL (8.4-25.7); Bilirubin, Total 1.3 mg/dL (0.2-1.2); Calc. Creatinine Clearance 0 mL/min (70-130); Calcium 8.1 mg/dL (7.8-10.44); Carbon Dioxide 21 mmol/L (23-31); Chloride 105 mmol/L (98-107); Estimated GFR 23; Glucose 155 mg/dL (83-110); Magnesium 1.7 mg/dL (1.6-2.6); Potassium 3.6 mmol/L (3.5-5.1); Protein, Total 6.1 g/dL (5.8-8.1); Sodium 139 mmol/L (136-145)
[2022-06-16 19:34] LABS: Bilirubin Negative (Negative); Blood, Urine 2+ (Negative); Clarity Turbid (Clear); Glucose, Urine (Dipstick) Normal (Negative); Ketone, Urine Negative (Negative); Leukocyte 500 Leu/uL (Negative); Nitrite 1+ (Negative); Protein, Urine (Dipstick) 10 mg/dL (Neg-Trace); Specific Gravity, Urine 1.013 (1.002-1.036); Squamous Epithelial 0-3 HPF (0-3); Urobilinogen Normal mg/dL (Less than 2); WBC/HPF Greater than 50 HPF (0-3)
[2022-06-16 19:37] LABS: Bacteria/HPF 1+ HPF (None Seen)
[2022-06-16 19:40] LABS: CKMB 0.7 ng/mL (0-6.6)
[2022-06-16 20:01] LABS: SARS-CoV-2 NAA Rapid Test Not Detected (NotDetected)
[2022-06-16] MEDS ORDERED: Magnesium 2 GM/50 ML BAG (IN WATER) ONE (20:18)
[2022-06-16] MEDS ORDERED: Aspirin Chewable 81 MG TAB ONE (20:18)
[2022-06-16] MEDS ORDERED: cefTRIAXone\\ROCEPHIN 2 GM VIAL ONE (21:37)
[2022-06-16] MEDS ORDERED: Acetaminophen 325 MG TAB PO PRN (22:18)
[2022-06-16] MEDS ORDERED: Ondansetron PF 4 MG/2 ML Vial IVP PRN (22:18)
[2022-06-16 22:55] LABS: Troponin I 0.048 ng/mL (< 0.028)
[2022-06-16 23:35] VITALS: BMI 19.2
[2022-06-17] MEDS: Sodium Chloride 0.9% 1,000 ML IV SCH ×2 (00:43→13:30)
[2022-06-17] MEDS ORDERED: Fleet Enema 133 ML BOT PR SCH (00:45)
[2022-06-17] MEDS: Cefepime 1 GM in Sodium Chloride 0.9% 100 ML IVPB SCH (01:47)
[2022-06-17 02:08] LABS: Troponin I 0.037 ng/mL (< 0.028)
[2022-06-17 04:35] LABS: #Lymphocytes 0.5 thou/uL (1.20-3.40); #Monocytes 0.6 thou/uL (0.11-0.59); #Neutrophils 9.8 thou/uL (1.40-6.50); %Eosinophils 0.4 % (0.0-10.0); %Lymphocytes 4.7 % (21.0-51.0); %Monocytes 5.7 % (0.0-10.0); %Neutrophils 89.2 % (42.0-75.0); Hemoglobin 10.2 g/dL (14.0-18.0); Mean Corpuscular Hemoglobin 30.6 pg (27.0-31.0); Mean Corpuscular Volume 92.6 fL (78.0-98.0); Mean Platelet Volume 5.8 fL (7.4-10.4); Platelet Count 237 thou/uL (130-400); RBC Distribution Width 14.1 % (11.5-14.5); Red Blood Cell (RBC) Count 3.33 mill/uL (4.70-6.10)
[2022-06-17 04:57] LABS: Anion Gap 12 mmol/L (10-20); BUN (Urea Nitrogen) 47 mg/dL (8.4-25.7); Calc. Creatinine Clearance 29 mL/min (70-130); Calcium 8.2 mg/dL (7.8-10.44); Carbon Dioxide 29 mmol/L (23-31); Chloride 107 mmol/L (98-107); Estimated GFR 37; Glucose 116 mg/dL (83-110); Magnesium 2.2 mg/dL (1.6-2.6); Potassium 3.5 mmol/L (3.5-5.1); Sodium 144 mmol/L (136-145)
[2022-06-17] MEDS ORDERED: Heparin 5,000 UNITS/ML VIAL SC SCH (09:00)
[2022-06-17] MEDS: Metoprolol Tartrate 25 MG TAB PO SCH ×2 (09:59→23:00)
[2022-06-17] MEDS ORDERED: Enoxaparin Sodium 80 MG/0.8 ML SYRINGE SC SCH (15:00)
[2022-06-18] MEDS: Cefepime 1 GM in Sodium Chloride 0.9% 100 ML IVPB SCH (01:13)
[2022-06-18 04:30] LABS: #Basophils 0.1 thou/uL (0.0-0.2); #Eosinphils 0.3 thou/uL (0.0-0.7); #Lymphocytes 0.6 thou/uL (1.20-3.40); #Monocytes 0.5 thou/uL (0.11-0.59); #Neutrophils 4.9 thou/uL (1.40-6.50); %Basophils 0.8 % (0.0-1.0); %Eosinophils 4.1 % (0.0-10.0); %Lymphocytes 9.5 % (21.0-51.0); %Monocytes 7.5 % (0.0-10.0); Hemoglobin 10.4 g/dL (14.0-18.0); Mean Corpuscular HGB CONC 32.7 g/dL (32.0-36.0); Mean Corpuscular Hemoglobin 30.1 pg (27.0-31.0); Mean Platelet Volume 5.7 fL (7.4-10.4); Platelet Count 250 thou/uL (130-400); RBC Distribution Width 14.1 % (11.5-14.5); Red Blood Cell (RBC) Count 3.46 mill/uL (4.70-6.10); White Blood Cell (WBC) Count 6.2 thou/uL (4.8-10.8)
[2022-06-18 04:52] LABS: Anion Gap 13 mmol/L (10-20); BUN (Urea Nitrogen) 35 mg/dL (8.4-25.7); Calc. Creatinine Clearance 44 mL/min (70-130); Calcium 8.1 mg/dL (7.8-10.44); Carbon Dioxide 26 mmol/L (23-31); Chloride 107 mmol/L (98-107); Estimated GFR 63; Glucose 115 mg/dL (83-110); Magnesium 1.7 mg/dL (1.6-2.6); Sodium 143 mmol/L (136-145)
[2022-06-18] MEDS: Sodium Chloride 0.9% 1,000 ML IV SCH ×2 (05:04→14:45)
[2022-06-18 05:07] LABS: Potassium 2.8 mmol/L (3.5-5.1)
[2022-06-18] MEDS ORDERED: Potassium Chloride 20 MEQ TAB PO SCH ×2 (06:00→14:30)
[2022-06-18] MEDS ORDERED: Magnesium 2 GM/50 ML(in water) 2 GM in Premix Bag 1 BAG IVPB SCH (06:00)
[2022-06-18] MEDS ORDERED: Iopamidol 30 ML ONE (07:26)
[2022-06-18] MEDS ORDERED: fentaNYL Citrate/PF 100 MCG/2 ML SYRINGE ONE (08:06)
[2022-06-18] MEDS ORDERED: Promethazine HCl 25 MG/ML VIAL IM PRN (08:07)
[2022-06-18] MEDS ORDERED: Ondansetron HCl/PF 4 MG/2 ML Vial IVP PRN (08:07)
[2022-06-18] MEDS ORDERED: Promethazine HCl 25 MG/ML VIAL IVPB PRN (08:07)
[2022-06-18] MEDS ORDERED: Lidocaine 1% MPF 2 ML VIAL ONE (08:16)
[2022-06-18] MEDS ORDERED: PROPOFOL 200 MG/20 ML VIAL ONE (08:16)
[2022-06-18] MEDS ORDERED: Ondansetron PF 4 MG/2 ML Vial ONE (08:16)
[2022-06-18] MEDS ORDERED: Dexamethasone 20 MG/5 ML VIAL ONE (08:16)
[2022-06-18] MEDS: Enoxaparin Sodium 80 MG/0.8 ML SYRINGE SC SCH (10:27)
[2022-06-18] MEDS ORDERED: Magnesium Sulfate 3 GM in Sodium Chloride 0.9% 100 ML IVPB SCH (12:00)
[2022-06-18 12:37] LABS: Anion Gap 13 mmol/L (10-20); BUN (Urea Nitrogen) 28 mg/dL (8.4-25.7); Calc. Creatinine Clearance 47 mL/min (70-130); Calcium 8.2 mg/dL (7.8-10.44); Carbon Dioxide 28 mmol/L (23-31); Estimated GFR 67; Glucose 150 mg/dL (83-110); Potassium 3.3 mmol/L (3.5-5.1)
[2022-06-18 12:42] LABS: Chloride 106 mmol/L (98-107); Sodium 144 mmol/L (136-145)
[2022-06-19] MEDS: Cefepime 1 GM in Sodium Chloride 0.9% 100 ML IVPB SCH (01:04)
[2022-06-19 04:33] LABS: #Basophils 0.1 thou/uL (0.0-0.2); #Lymphocytes 0.6 thou/uL (1.20-3.40); #Monocytes 0.4 thou/uL (0.11-0.59); #Neutrophils 5.2 thou/uL (1.40-6.50); %Basophils 0.9 % (0.0-1.0); %Eosinophils 0.7 % (0.0-10.0); %Monocytes 6.3 % (0.0-10.0); %Neutrophils 82.1 % (42.0-75.0); Hemoglobin 9.7 g/dL (14.0-18.0); Mean Corpuscular HGB CONC 33.7 g/dL (32.0-36.0); Mean Corpuscular Hemoglobin 30.9 pg (27.0-31.0); Mean Corpuscular Volume 91.7 fL (78.0-98.0); Mean Platelet Volume 6.2 fL (7.4-10.4); Platelet Count 254 thou/uL (130-400); RBC Distribution Width 13.8 % (11.5-14.5); Red Blood Cell (RBC) Count 3.14 mill/uL (4.70-6.10); White Blood Cell (WBC) Count 6.3 thou/uL (4.8-10.8)
[2022-06-19 04:57] LABS: Anion Gap 14 mmol/L (10-20); BUN (Urea Nitrogen) 26 mg/dL (8.4-25.7); Calc. Creatinine Clearance 57 mL/min (70-130); Calcium 7.7 mg/dL (7.8-10.44); Carbon Dioxide 25 mmol/L (23-31); Chloride 108 mmol/L (98-107); Estimated GFR 84; Glucose 186 mg/dL (83-110); Magnesium 2.3 mg/dL (1.6-2.6); Potassium 3.8 mmol/L (3.5-5.1); Sodium 143 mmol/L (136-145)
[2022-06-19] MEDS: Sodium Chloride 0.9% 1,000 ML IV SCH ×2 (05:18→18:51)
[2022-06-19] MEDS: Enoxaparin Sodium 80 MG/0.8 ML SYRINGE SC SCH (12:26)
[2022-06-20] MEDS: Cefepime 1 GM in Sodium Chloride 0.9% 100 ML IVPB SCH ×2 (00:52→14:04)
[2022-06-20] MEDS: Sodium Chloride 0.9% 1,000 ML IV SCH (08:30)
[2022-06-20] MEDS: Enoxaparin Sodium 80 MG/0.8 ML SYRINGE SC SCH (09:25)
[2022-06-20 14:13] LABS: #Eosinphils 0.2 thou/uL (0.0-0.7); #Lymphocytes 1.1 thou/uL (1.20-3.40); #Monocytes 0.6 thou/uL (0.11-0.59); #Neutrophils 5.6 thou/uL (1.40-6.50); %Basophils 0.6 % (0.0-1.0); %Eosinophils 3.1 % (0.0-10.0); %Lymphocytes 14.4 % (21.0-51.0); %Monocytes 7.3 % (0.0-10.0); %Neutrophils 74.7 % (42.0-75.0); Hemoglobin 10.8 g/dL (14.0-18.0); Mean Corpuscular Hemoglobin 29.9 pg (27.0-31.0); Mean Corpuscular Volume 90.7 fL (78.0-98.0); Mean Platelet Volume 5.8 fL (7.4-10.4); Platelet Count 263 thou/uL (130-400); RBC Distribution Width 13.9 % (11.5-14.5); Red Blood Cell (RBC) Count 3.62 mill/uL (4.70-6.10); White Blood Cell (WBC) Count 7.5 thou/uL (4.8-10.8)
[2022-06-20 14:34] LABS: Anion Gap 14 mmol/L (10-20); BUN (Urea Nitrogen) 18 mg/dL (8.4-25.7); Calc. Creatinine Clearance 67 mL/min (70-130); Calcium 7.8 mg/dL (7.8-10.44); Carbon Dioxide 26 mmol/L (23-31); Chloride 104 mmol/L (98-107); Estimated GFR 88; Glucose 121 mg/dL (83-110); Sodium 141 mmol/L (136-145)
[2022-06-20 14:45] LABS: Potassium 2.7 mmol/L (3.5-5.1)
[2022-06-20] MEDS ORDERED: Potassium Chloride 20 MEQ in Premix Bag 1 BAG IVPB SCH (15:00)
[2022-06-20] MEDS ORDERED: Magnesium 2 GM/50 ML(in water) 2 GM in Premix Bag 1 BAG IVPB SCH (15:00)
[2022-06-20] MEDS: Potassium Chloride 20 MEQ TAB PO SCH ×2 (16:38→20:45)
[2022-06-21] MEDS: Sodium Chloride 0.9% 1,000 ML IV SCH ×2 (02:02→12:32)
[2022-06-21] MEDS: Cefepime 1 GM in Sodium Chloride 0.9% 100 ML IVPB SCH ×2 (02:13→14:00)
[2022-06-21 04:25] LABS: #Basophils 0.1 thou/uL (0.0-0.2); #Eosinphils 0.6 thou/uL (0.0-0.7); #Lymphocytes 1.3 thou/uL (1.20-3.40); #Monocytes 0.6 thou/uL (0.11-0.59); #Neutrophils 4.1 thou/uL (1.40-6.50); %Basophils 0.8 % (0.0-1.0); %Eosinophils 8.8 % (0.0-10.0); %Lymphocytes 18.9 % (21.0-51.0); %Monocytes 9.6 % (0.0-10.0); %Neutrophils 61.8 % (42.0-75.0); Hemoglobin 9.9 g/dL (14.0-18.0); Mean Corpuscular HGB CONC 32.4 g/dL (32.0-36.0); Mean Corpuscular Hemoglobin 29.4 pg (27.0-31.0); Mean Corpuscular Volume 90.6 fL (78.0-98.0); Mean Platelet Volume 5.8 fL (7.4-10.4); Platelet Count 246 thou/uL (130-400); RBC Distribution Width 13.9 % (11.5-14.5); Red Blood Cell (RBC) Count 3.37 mill/uL (4.70-6.10); White Blood Cell (WBC) Count 6.6 thou/uL (4.8-10.8)
[2022-06-21 04:47] LABS: Anion Gap 13 mmol/L (10-20); BUN (Urea Nitrogen) 15 mg/dL (8.4-25.7); Calc. Creatinine Clearance 74 mL/min (70-130); Calcium 7.5 mg/dL (7.8-10.44); Carbon Dioxide 25 mmol/L (23-31); Chloride 106 mmol/L (98-107); Estimated GFR 91; Glucose 103 mg/dL (83-110); Potassium 3.9 mmol/L (3.5-5.1); Sodium 140 mmol/L (136-145)
[2022-06-21] MEDS: Enoxaparin Sodium 80 MG/0.8 ML SYRINGE SC SCH ×2 (09:07→20:21)
[2022-06-21 12:34] VITALS: TEMP 97.9
[2022-06-21 16:40] VITALS: BP 159/97
== END 2022-06-21 20:45 | disposition home health service (06) | DRG 853 ==
LOC: ERS 18:06 → 2NO 21:05
PROVIDERS: ADMIT Internal Medicine; ATTEND Internal Medicine
PROC: 3E03329 Introduction of Other Anti-infective into Peripheral Vein, Percutaneous Approach (ICD-10-PCS; 2022-06-16)
PROC: 0T788DZ Dilation of Bilateral Ureters with Intraluminal Device, Via Natural or Artificial Opening Endoscopic (ICD-10-PCS; principal; 2022-06-18)
PROC: BT14ZZZ Fluoroscopy of Kidneys, Ureters and Bladder (ICD-10-PCS; 2022-06-18)
DX: A41.9 Sepsis, unspecified organism (principal); G93.41 Metabolic encephalopathy; N17.9 Acute kidney failure, unspecified; I50.22 Chronic systolic (congestive) heart failure; N13.6 Pyonephrosis; E44.1 Mild protein-calorie malnutrition; Z68.1 Body mass index [BMI] 19.9 or less, adult; Z20.822 Contact with and (suspected) exposure to COVID-19; R65.20 Severe sepsis without septic shock; I48.91 Unspecified atrial fibrillation; I11.0 Hypertensive heart disease with heart failure; K21.9 Gastro-esophageal reflux disease without esophagitis; Z96.641 Presence of right artificial hip joint; Z86.718 Personal history of other venous thrombosis and embolism; Z87.891 Personal history of nicotine dependence; Z79.82 Long term (current) use of aspirin; Z79.899 Other long term (current) drug therapy; Z74.01 Bed confinement status; E87.6 Hypokalemia; R31.0 Gross hematuria
CPT/HCPCS: 36415; 36416; 51798; 70450; 71045; 74176; 74420; 76770; 80048; 80053; 81003; 81015; 82553; 83605; 83735; 83880; 84443; 84484; 85025; 87040; 87077; 87086; 87149; 87186; 93005; 93306; 96365; 96366; 96375; 96376; C2617; J0153; J0692; J0696; J1100; J1644; J1650; J2405; J2704; J3475; J3480; J3490; J7050; Q9967; U0002